=== PATIENT | female | born 1945 | race Asian ===

== ENCOUNTER → 2017-09-02 | Day surgery (SDC) | payer OTHER | END | disposition home or self-care (01) | LOC: FRADUS-SUR 13:00 | PROVIDERS: ATTEND Surgery | PROC: 0HBT3ZX Excision of Right Breast, Percutaneous Approach, Diagnostic (ICD-10-PCS; principal; 2017-09-02) | DX: C50.211 Malignant neoplasm of upper-inner quadrant of right female breast (principal); N63.12 Unspecified lump in the right breast, upper inner quadrant | CPT/HCPCS: 19083; 77065-TC; 87899; 88305-TC; 88341-TC; 88342-TC; A4648 ==

== ENCOUNTER → 2017-10-19 | Day surgery (SDC) | payer OTHER ==
--- NOTE | 2017-10-11 14:50 | HP ---
Admitting History and Physical - Primary Care Physician PCP: Sherry Alegre - Admission Chief Complaint: Right breast cancer History of Present Illness: 72 year , ancestry female with routine mammogeam 05/2017 showing possible spiculated mass right 12:00 additional views showed irregular mass on US. US core bx 08/2017 right 12:00 showed invasive ductal carcinomaER+ VA-,Her2 -. History Source: Patient Limitations to Obtaining History: No Limitations - Past Medical History Cardiovascular: Yes: HTN, Hyperlipdemia Endocrine: Yes: Diabetes Mellitus, Hypothyroidism - Past Surgical History Additional Past Surgical History: partial thyroidectomy 1999 - Smoking History Smoking history: Former smoker Have you smoked in the past 12 months: No - Alcohol/Substance Use Hx Alcohol Use: No Home Medications - Allergies Allergies/Adverse Reactions: Allergies Allergy/AdvReac Type Severity Reaction Status Date / Time No Known Drug Allergies Allergy Verified 09/03/14 16:45 - Home Medications Home Medications: Ambulatory Orders Canagliflozin [Invokana] 300 mg PO DAILY 09/03/14 Duloxetine HCl [Cymbalta -] 60 mg PO HS 09/03/14 Folic Acid - 1 mg PO DAILY 09/03/14 Glimepiride [Amaryl] 2 mg PO DAILY 09/03/14 Insulin Glargine,Hum.rec.anlog [Lantus Solostar PEN -] 40 units SQ DAILY Levothyroxine [Synthroid -] 75 mcg PO DAILY 09/03/14 Losartan/Hydrochlorothiazide [Losartan-Hctz 100-25 mg Tab] 1 each PO DAILY 09/03 Pregabalin [Lyrica -] 100 mg PO DAILY 09/03/14 Simvastatin [Zocor -] 60 mg PO HS 09/03/14 Family Disease History - Family Disease History Family History: Denies Physical Examination Constitutional: Yes: No Distress Breast(s): Yes: Other (symmetrical no nipple discharge or palpable masses bilateral or adenopathy post bx changes right breast) Problem List - Problems (1) Breast cancer, right breast Code(s): C50.911 - MALIGNANT NEOPLASM OF UNSP SITE OF RIGHT FEMALE BREAST Qualifiers: Breast location: upper inner quadrant of breast Patient sex: female Assessment/Plan Right breast wide excision, mammogram needle localization ,sentenel node biopsy ,lymphoscintogram,possible axillary node dissection
[2017-10-18 10:56] VITALS: BMI 31.6
[2017-10-19 09:19] VITALS: BP 131/66; PULSE 71; TEMP 97.7
== END | disposition home or self-care (01) ==
LOC: FASU 08:36
PROVIDERS: ATTEND Surgery
PROC: 0HBT0ZZ Excision of Right Breast, Open Approach (ICD-10-PCS; principal; 2017-10-19)
DX: Z53.8 Procedure and treatment not carried out for other reasons (principal); C50.911 Malignant neoplasm of unspecified site of right female breast; I10 Essential (primary) hypertension; E78.5 Hyperlipidemia, unspecified; E03.9 Hypothyroidism, unspecified; E11.9 Type 2 diabetes mellitus without complications; Z87.891 Personal history of nicotine dependence; Z79.4 Long term (current) use of insulin
CPT/HCPCS: 82962

== ENCOUNTER 2017-10-26 08:44 | Day surgery (SDC) | payer OTHER ==
[2017-10-26 09:41] VITALS: BMI 31.6
[2017-10-26] MEDS ORDERED: MIDAZOLAM HCL 2 MG/2 ML SINGLE DOSE VIAL ONE (12:34)
[2017-10-26] MEDS ORDERED: LIDOCAINE HCL 1%, 10 MG/ML (20ML VIAL) ONE (12:39)
[2017-10-26] MEDS ORDERED: BUPIVACAINE HCL 0.25% 125 MG/50 ML VIAL ONE (12:39)
[2017-10-26] MEDS ORDERED: ISOSULFAN BLUE 10 MG/ML VIAL SQ ONE (12:47)
[2017-10-26] MEDS ORDERED: ONDANSETRON 4 MG/2 ML VIAL IVPUSH PRN (13:11)
[2017-10-26] MEDS ORDERED: KETOROLAC TROMETHAMINE 30 MG/1 ML VIAL IVPUSH PRN (13:11)
[2017-10-26] MEDS ORDERED: DEXTROSE 5%-0.45% SALINE 1,000 ML IV SCH (13:15)
[2017-10-26] MEDS ORDERED: ONDANSETRON 4 MG/2 ML VIAL ONE ×2 (13:31→15:12)
[2017-10-26] MEDS ORDERED: DEXAMETHASONE SOD PHOSPHATE 4 MG/1 ML VIAL ONE ×2 (13:31→15:12)
[2017-10-26] MEDS ORDERED: PROPOFOL 20 ML ONE (13:34)
[2017-10-26] MEDS ORDERED: ROCURONIUM BROMIDE 50 MG/5 ML VIAL ONE (13:34)
[2017-10-26] MEDS ORDERED: LIDOCAINE HCL/PF 2% SDV 5ML VIAL ONE (13:34)
[2017-10-26] MEDS ORDERED: ceFAZolin SODIUM 1 GM VIAL ONE (13:43)
[2017-10-26] MEDS ORDERED: oxyCODONE HCL 5 MG TABLET PO PRN (14:42)
[2017-10-26] MEDS ORDERED: LACTATED RINGERS SOLUTION 1,000 ML IV SCH (14:45)
[2017-10-26] MEDS ORDERED: NEOSTIGMINE METHYLSULFATE 0.5 MG/ML - 10 ML MDV ONE (15:19)
[2017-10-26] MEDS ORDERED: GLYCOPYRROLATE 0.2 MG/1 ML VIAL ONE (15:20)
[2017-10-26 17:07] VITALS: BP 145/73; PULSE 73
--- NOTE | 2017-10-26 18:20 | OP ---
DATE OF OPERATION: 10/26/2017 PREOPERATIVE DIAGNOSIS: Right breast cancer. POSTOPERATIVE DIAGNOSIS: Right breast cancer. PROCEDURE: Right breast wide excision and sentinel node biopsy. SURGEON: Chu Alegre MD SENIOR TECHNICAL WRITER: VANGIE Johnson ANESTHESIA: General. ANESTHESIOLOGIST: ESTIMATED BLOOD LOSS: Minimal. SPECIMEN: 1. [place] nodes. 2. Right breast wide excision. 3. Through 8 additional margins. DRAINS: None. INDICATION FOR PROCEDURE: The patient has a 72-year-old female who had an abnormal mammogram showing a suspicious mass in the right breast. Ultrasound-guided biopsy showed an invasive ductal cancer. After discussion of surgical options, she selected breast conservation with right wide excision and sentinel node biopsy. The procedure was explained to her, and her family and all questions were answered. Risks and complications were also discussed prior to surgery. PROCEDURE: The patient was taken to nuclear medicine where she underwent lymphoscintigraphy to identify the sentinel node. She then underwent a needle localization. She was seen in ambulatory, and informed consent was obtained. The right breast was identified with a marker. She was taken to the operating room and placed on the operating table in the supine position. She was intubated. She received antibiotics prior to surgery. Examination of the right breast showed a localizing wire at the 12 o'clock position. The right breast and axilla were prepped and draped in the usual fashion. The right breast was infiltrated with Lymphazurin and massaged for 5 minutes. A timeout was performed. Examination of the axilla with a navigated probe did show barely elevated counts. An incision was made in the skin crease of the axilla, and the incision was deepened until the axillary fat was exposed. A large soft node was seen that appeared to have a tinge of blue. This node was removed. It did not exhibit high counts, but it was placed in formalin to be sent to Pathology. Further examination of the axilla showed 2 lymph nodes. One was neither blue nor hot and the other exhibited mild counts. Overall there were no significantly high counts in the axilla. These 2 nodes were removed and included with the specimen. Attention was then turned to removal of the breast cancer. An incision was made below the localizing wire in the skin crease. The incision was deepened using electrocautery. Electrocautery was then used to mobilize the tissue around the tip of the needle down towards the chest wall. The needle was disassembled and brought into the operative field. The specimen was removed and labeled with a long lateral stitch and a short superior stitch. A specimen radiograph showed the clip and the specimen were included. Additional margins were then taken from the superior, inferior, medial, lateral, anterior, and posterior regions of the biopsy cavity and were labeled with a stitch at the biopsy cavity side. These were all placed as separate specimens in formalin and sent to Pathology. The wound was irrigated and inspected for hemostasis. There was no evidence of bleeding. The axilla was also free of bleeding. Both were infiltrated with 0.25% Marcaine. The breast incision was closed using interrupted sutures of 2-0 plain for the deep tissue and interrupted stitches of 3-0 Vicryl for the dermis. The skin was closed with a running subcuticular closure of 4-0 Biosyn. The axilla incision was closed using interrupted sutures of 3-0 Vicryl for the deep tissue and for the dermis. The skin was closed with 4-0 Biosyn in a running subcuticular closure. The wounds were cleaned and dressed with Steri-Strips and a sterile gauze dressing. A surgical bra was placed. The patient was awakened and taken to the recovery area in satisfactory condition. She was stable throughout the entire case. At the end of the procedure, sponge, lap, and instrument counts were correct. CHU ALEGRE M.D. [id number]
[2017-10-26 18:25] VITALS: TEMP 98.1
--- NOTE | 2017-10-29 16:29 | PATH ---
Surgical Pathology Report Patient Name: JANE COCHRAN [facility]. Rec. #: [id number] /Age/Gender: 1945 (Age: 72) / F Account: [id number] Location: [facility] Taken: 10/26/2017 Received: 10/26/2017 Reported: 10/29/2017 Physicians: Sherry Alegre M.D. Specimen(s) Received A: RIGHT AXILLARY SENTINEL LYMPH NODE B: RIGHT BREAST WIDE EXCISION C: RIGHT BREAST INFERIOR MARGIN D: RIGHT BREAST SUPERIOR MARGIN E: RIGHT BREAST LATERAL MARGIN F: RIGHT BREAST MEDIAL MARGIN G: RIGHT BREAST POSTERIOR MARGIN H: RIGHT BREAST ANTERIOR MARGIN Clinical History Wide excision: Invasive carcinoma Final Diagnosis A. AXILLARY SENTINEL LYMPH NODE, RIGHT, EXCISION: FOUR BENIGN LYMPH NODES (0/4). B. BREAST, RIGHT, WIDE EXCISION: TWO FOCI OF INVASIVE DUCTAL CARCINOMA, MODERATELY DIFFERENTIATED (TUBULE SCORE: 3/3, NUCLEAR GRADE: 2/3, MITOTIC SCORE: 1/3; TOTAL RERE SCORE: 6/9). INVASIVE CARCINOMA MEASURES 2 AND 9 MM IN GREATEST MICROSCOPIC DIMENSION. DUCTAL CARCINOMA IN SITU (DCIS), INTERMEDIATE NUCLEAR GRADE, SOLID AND MICROPAPILLARY TYPES. NO LYMPHOVASCULAR INVASION IDENTIFIED. DCIS IS <1 MM FROM ANTERIOR-LATERAL MARGIN. SURGICAL MARGINS ARE UNINVOLVED BY INVASIVE CARCINOMA; INVASIVE CARCINOMA IS 4 MM FROM CLOSEST (INFERIOR) MARGIN. SEE SPECIMEN C-H FOR FINAL MARGINS. PRIOR BIOPSY CHANGES PRESENT. PATHOLOGIC STAGE (pTNM): pT1b (m) pN0 (sn). SEE INVASIVE CARCINOMA CASE SUMMARY BELOW. C. BREAST, RIGHT, INFERIOR MARGIN, EXCISION: BENIGN BREAST TISSUE. D. BREAST, RIGHT, SUPERIOR MARGIN, EXCISION: BENIGN FIBROADIPOSE TISSUE. E. BREAST, RIGHT, LATERAL MARGIN, EXCISION: BENIGN BREAST TISSUE. F. BREAST, RIGHT, MEDIAL MARGIN, EXCISION: BENIGN BREAST TISSUE. G. BREAST, RIGHT, POSTERIOR MARGIN, EXCISION: BENIGN FIBROADIPOSE TISSUE H. BREAST, RIGHT, ANTERIOR MARGIN, EXCISION: BENIGN FIBROADIPOSE TISSUE. Comment: Immunohistochemical stain performed and interpreted at [facility] show the carcinoma is positive for E-Cadherin supporting ductal phenotype. Comments Breast Invasive Carcinoma: Surgical Pathology Case Summary (Based on AJCC TNM 8 th edition) Procedure _X_ Excision (less than total mastectomy) Specimen Laterality _X_ Right Tumor Size _X_ Greatest dimension of largest invasive focus >1 mm (millimeters): 9 mm Histologic Type _X_ Invasive carcinoma of no special type (ductal, not otherwise specified) Histologic Grade ([place] Histologic Score) Glandular (Acinar)/Tubular Differentiation _X__ Score 3 (<10% of tumor area forming glandular/tubular structures) Nuclear Pleomorphism _X_ Score 2 Mitotic Rate _X_ Score 1 Overall Grade _X_ Grade 2 (scores of 6) Tumor Focality _X_ Multiple foci of invasive carcinoma Number of foci: __2__ Sizes of individual foci: _2 mm and 9 mm_ Ductal Carcinoma In Situ (DCIS) _X_ DCIS is present in specimen _X_ Negative for extensive intraductal component (EIC) Margins Invasive Carcinoma Margins _X__ Uninvolved by invasive carcinoma Distance from closest margin (millimeters): 4 mm Closest margin: Inferior DCIS Margins _X__ Uninvolved by DCIS: Distance from closest margin (millimeters): (<1 mm in wide excision, but negative in additional final margins. Closest margin: anterior-lateral Regional Lymph Nodes Number of Lymph Nodes with Macrometastases (>2 mm): 0 Number of Lymph Nodes with Micrometastases (>0.2 mm to 2 mm and/or >200 cells): 0 Number of Lymph Nodes with Isolated Tumor Cells (=0.2 mm and =200 cells): 0 Number of Lymph Nodes Examined: 4 Number of [place] Nodes Examined: 4 Treatment Effect _X_ No known presurgical therapy Lymphovascular Invasion _X_ Not identified Pathologic Stage Classification (pTNM, AJCC 8th Edition) TNM Descriptors _X_ m (multiple foci of invasive carcinoma): 2 Foci Primary Tumor (Invasive Carcinoma) (pT) _X__ pT1b: Tumor >5 mm but =10 mm in greatest dimension Regional Lymph Nodes (pN) Modifier _X_ (sn): [place] node(s) evaluated. Category (pN) _X__ pN0: No regional lymph node metastasis identified or ITCs only Biomarker Studies Results of ER and W[place] studies performed on prior biopsy (D104) at [facility] are as follows: ER (clone [id number] mouse monoclonal antibody by [employer]): 90% nuclear staining with strong (Positive). W[place] (clone16 mouse monoclonal antibody by [employer]): 0% nuclear staining (Positive). Results of Her2 (IHC) & Ki-67 studies performed on prior biopsy (D15-133) at [place], [place] ([id number]) are as follows: Her2 IHC (EP3 from [employer], formerly known as [id number], using [employer] Polymer Refine detection kit): 0 (Negative) Ki67: ~5% (Low proliferative index). Electronically Signed Neelam Vaughn M.D. Gross Description A. Received in formalin, labeled "right axillary sentinel lymph node" are four firm to hard lymph nodes with attached fatty tissue, ranging from 1-3.2 cm in greatest dimension. The lymph nodes are entirely submitted in nine cassettes as follows: 1-one bisected lymph node; 2&3-one trisected lymph node; 4&5- one trisected lymph node; 6-9- one quadrisected lymph node. B. Received in formalin, labeled "right breast wide excision" is a 5.2 x 4 x 2.5 cm portion of fibrofatty tissue with a localizing needle in place. The specimen is inked as follows: Anterior-red, deep-black, medial-yellow, lateral-orange, superior-blue, inferior-green. Sectioning reveals a 1.6 x 1 x 0.5 cm ill-defined firm sesay mass at 4 mm from the lateral margin and at 6 mm from the anterior margin. The remaining margins are widely clear ( > 1 cm) of the mass. Remaining breast tissue is comprised predominantly of unremarkable adipose tissue. [employer] sections are submitted in six cassettes as follows: 1,2-mass with anterior and lateral margins; 3-deep margin; 4-medial margin; 5-superior margin; 6-inferior margin. Time to formalin fixation: 3 minutes Total formalin fixation time: Approximately 28 hours C. Received in formalin, labeled "inferior margin" is a 2.7 x 1.5 x 0.5 cm portion of fibrofatty tissue with a suture designating the biopsy cavity side, per the surgeon. The margin opposite the suture is inked green. The specimen is serially sectioned and entirely submitted in two cassettes. D. Received in formalin, labeled "superior margin" is a 2.6 x 1.7 x 0.6 cm portion of fibrofatty tissue with a suture designating the biopsy cavity side, per the surgeon. The margin opposite the suture is inked green. The specimen is serially sectioned and entirely submitted in two cassettes. E. Received in formalin, labeled "lateral margin" is a 3 x 1.7 x 0.4 cm portion of fibrofatty tissue with a suture designating the biopsy cavity side, per the surgeon. The margin opposite the suture is inked green. The specimen is serially sectioned and entirely submitted in three cassettes. F. Received in formalin, labeled "medial margin" is 3.5 x 2.5 x 0.3 cm portion of fibrofatty tissue with a suture designating the biopsy cavity side, per the surgeon. The margin opposite the suture is inked green. The specimen is serially sectioned and entirely submitted in three cassettes. G. Received in formalin, labeled "posterior margin" is a 1.7 x 1.2 x 0.5 cm portion of fibrofatty tissue with a suture designating the biopsy cavity side, per the surgeon. The margin opposite the suture is inked green. The specimen is serially sectioned and entirely submitted in two cassettes. H. Received in formalin, labeled "anterior margin" is a 2.2 x 1.8 x 0.4 cm portion of fibrofatty tissue with a suture designating the biopsy cavity side, per the surgeon. The margin opposite the suture is inked green. The specimen is serially sectioned and entirely submitted in two cassettes. AE10/27/2017 ebram10/27/2017
== END 2017-10-26 18:36 | disposition home or self-care (01) ==
LOC: FASU 08:44
PROVIDERS: ATTEND Surgery
PROC: 0HBT0ZZ Excision of Right Breast, Open Approach (ICD-10-PCS; principal; 2017-10-26 13:53)
DX: C50.211 Malignant neoplasm of upper-inner quadrant of right female breast (principal)
CPT/HCPCS: 19281; 78195-TC; 82962; 88307-TC; 88342-TC; 94760; A9541

== ENCOUNTER 2023-08-14 08:43 | Inpatient (IN) | payer OTHER ==
[2023-08-14 09:18] VITALS: BMI 31.6
[2023-08-14] MEDS ORDERED: ACETAMINOPHEN INJECTION 100 ML IVPB ONE (10:01)
[2023-08-14] MEDS: ACETAMINOPHEN 1000 MG/100 ML BAG IVPB ONE (10:04)
[2023-08-14] MEDS: ACETAMINOPHEN 500 MG TABLET (FP) PO ONE (10:05)
[2023-08-14 10:10] LABS: EPI CELLS 25 /uL (0-25.1); HYALINE CASTS 0 /uL (0-3.1); URINE APPEARANCE CLEAR; URINE BACTERIA 2 /uL (0-1359); URINE BILIRUBIN NEGATIVE (NEGATIVE); URINE COLOR YELLOW; URINE GLUCOSE (UA) 2+ (NEGATIVE); URINE KETONE NEGATIVE (NEGATIVE); URINE LEUK ESTERASE NEGATIVE (NEGATIVE); URINE NITRITE NEGATIVE (NEGATIVE); URINE PROTEIN 3+ (NEGATIVE); URINE RBC 26 /uL (0-23.9); URINE UROBILINOGEN 0.2 mg/dL (0.2-1.0)
[2023-08-14 10:12] LABS: INR 1.15 (0.83-1.09); PROTHROMBIN TIME (PATIENT) 12.9 SEC (9.7-13.0)
[2023-08-14 10:17] LABS: BASO % 0.5 % (0-2.0); EOS % 0.7 % (0-4.5); HEMATOCRIT 37.1 % (32.4-45.2); HEMOGLOBIN 12.4 GM/dL (10.7-15.3); MCH 27.6 pg (25.7-33.7); MCHC 33.5 g/dl (32.0-36.0); MEAN CELL VOLUME 82.5 fl (80-96); MEAN PLT VOLUME 7.7 fl (7.5-11.1); NEUT % 82.8 % (42.8-82.8); PLATELET COUNT 326 10^3/uL (134-434); RDW 15.7 % (11.6-15.6); WHITE BLOOD COUNT 11.5 K/mm3 (4.0-10.0)
[2023-08-14 10:32] LABS: CHLORIDE 106 mmol/L (98-107); POTASSIUM 4.7 mmol/L (3.5-5.1); SODIUM 136 mmol/L (136-145)
[2023-08-14 10:34] LABS: CALCIUM 10.6 mg/dL (8.5-10.1)
[2023-08-14 10:35] LABS: ALBUMIN 3.3 g/dl (3.4-5.0); ANION GAP 4 mmol/L (4-13); BLOOD UREA NITROGEN 32.1 mg/dL (7-18); CO2 26 mmol/L (21-32); GLUCOSE,RANDOM 315 mg/dL (74-106)
[2023-08-14 10:38] LABS: SGOT/AST 36 U/L (15-37); SGPT/ALT 35 U/L (13-61)
[2023-08-14 10:40] LABS: BILIRUBIN,TOTAL 0.5 mg/dL (0.2-1)
[2023-08-14 10:41] LABS: ALK PHOS 128 U/L (45-117)
[2023-08-14] MEDS ORDERED: LOSARTAN POTASSIUM 50 MG TABLET ONE (12:52)
[2023-08-14] MEDS: LOSARTAN POTASSIUM 50 MG TABLET PO SCH (13:00)
[2023-08-14] MEDS: SODIUM CHLORIDE 1,000 ML IV SCH (13:40)
[2023-08-14 13:45] LABS: URINE WBC 80 /uL (0-25.8)
[2023-08-14] MEDS ORDERED: INSULIN (NOVOLOG) ASPART 100 UNITS/ML 10ML VIAL ONE (17:37)
[2023-08-14] MEDS: INSULIN ASPART SLIDING SCALE (NOVOLOG) 1 VIAL SQ SCH (17:40)
[2023-08-15] MEDS: LEVOTHYROXINE NA 75 MCG TABLET (FP) PO SCH (06:21)
[2023-08-15 07:41] LABS: BASO % 0.8 % (0-2.0); EOS % 2.1 % (0-4.5); HEMATOCRIT 37.1 % (32.4-45.2); HEMOGLOBIN 12.5 GM/dL (10.7-15.3); LYMPH % 15.8 % (8-40); MCH 28.1 pg (25.7-33.7); MCHC 33.8 g/dl (32.0-36.0); MEAN CELL VOLUME 83.1 fl (80-96); MEAN PLT VOLUME 8.2 fl (7.5-11.1); NEUT % 75.3 % (42.8-82.8); PLATELET COUNT 314 10^3/uL (134-434); RBC 4.46 M/mm3 (3.60-5.2); RDW 16.2 % (11.6-15.6)
[2023-08-15 07:53] LABS: POTASSIUM 4.7 mmol/L (3.5-5.1)
[2023-08-15 07:55] LABS: CALCIUM 10.2 mg/dL (8.5-10.1)
[2023-08-15 07:56] LABS: BLOOD UREA NITROGEN 28.3 mg/dL (7-18); MAGNESIUM 1.5 mg/dL (1.8-2.4)
[2023-08-15 07:59] LABS: CREATININE 0.9 mg/dL (0.55-1.3); PHOSPHOROUS 2.3 mg/dL (2.5-4.9)
[2023-08-15 08:00] LABS: BILIRUBIN,TOTAL 0.5 mg/dL (0.2-1)
[2023-08-15 08:01] LABS: TOT PROT 6.6 g/dl (6.4-8.2)
[2023-08-15] MEDS: PANTOPRAZOLE 40 MG TABLET PO SCH (13:38)
[2023-08-15] MEDS: NAPH,MB-DB/K PH,MBDB POWDER PACKET PO SCH (13:38)
[2023-08-15] MEDS: ANASTROZOLE 1 MG TABLET PO SCH (13:42)
[2023-08-15] MEDS: MAGNESIUM 2GM/50ML STERILE WATER IVPB IVPB SCH ×2 (13:55→18:20)
[2023-08-15] MEDS ORDERED: INSULIN (NOVOLOG) ASPART 100 UNITS/ML 10ML VIAL ONE (17:00)
[2023-08-15] MEDS: QUEtiapine FUMARATE 25 MG TABLET PO ONE (20:05)
[2023-08-15] MEDS ORDERED: clonazePAM 0.5 MG TABLET PO PRN (22:00)
[2023-08-15] MEDS: ATORVASTATIN CA 20 MG TABLET (FP) PO SCH (22:37)
[2023-08-15] MEDS: QUEtiapine FUMARATE 25 MG TABLET PO SCH (22:37)
[2023-08-16] MEDS ORDERED: INSULIN (NOVOLOG) ASPART 100 UNITS/ML 10ML VIAL ONE (06:22)
[2023-08-16 07:38] LABS: BASO % 0.7 % (0-2.0); EOS % 2.3 % (0-4.5); HEMATOCRIT 40.2 % (32.4-45.2); HEMOGLOBIN 13.4 GM/dL (10.7-15.3); LYMPH % 22.7 % (8-40); MCH 27.7 pg (25.7-33.7); MCHC 33.4 g/dl (32.0-36.0); MEAN CELL VOLUME 82.9 fl (80-96); MEAN PLT VOLUME 8.1 fl (7.5-11.1); MONO % 8.2 % (3.8-10.2); NEUT % 66.1 % (42.8-82.8); PLATELET COUNT 348 10^3/uL (134-434); RBC 4.85 M/mm3 (3.60-5.2); RDW 16.1 % (11.6-15.6); WHITE BLOOD COUNT 10.3 K/mm3 (4.0-10.0)
[2023-08-16 07:53] LABS: POTASSIUM 4.8 mmol/L (3.5-5.1)
[2023-08-16 07:57] LABS: ALBUMIN 3.3 g/dl (3.4-5.0); BLOOD UREA NITROGEN 26.6 mg/dL (7-18); CALCIUM 10.3 mg/dL (8.5-10.1); MAGNESIUM 2.2 mg/dL (1.8-2.4)
[2023-08-16 08:00] LABS: PHOSPHOROUS 2.6 mg/dL (2.5-4.9)
[2023-08-16 08:01] LABS: BILIRUBIN,TOTAL 0.6 mg/dL (0.2-1); TOT PROT 7.4 g/dl (6.4-8.2)
[2023-08-16] MEDS ORDERED: clonazePAM 0.5 MG TABLET PO PRN (08:41)
[2023-08-16] MEDS: clonazePAM 0.5 MG TABLET PO PRN (09:41)
[2023-08-16] MEDS: SILVER SULFADIAZINE 1% TOP CREAM 50 GM JAR TP SCH (16:00)
[2023-08-16] MEDS: ACETAMINOPHEN 1000 MG/100 ML BAG IVPB ONE (19:13)
[2023-08-16] MEDS: SODIUM CHLORIDE 1,000 ML IV SCH (19:14)
[2023-08-16] MEDS: QUEtiapine FUMARATE 25 MG TABLET PO SCH (20:28)
[2023-08-17] MEDS: INSULIN ASPART SLIDING SCALE (NOVOLOG) 1 VIAL SQ SCH (06:28)
[2023-08-17] MEDS: LEVOTHYROXINE NA 75 MCG TABLET (FP) PO SCH (06:28)
[2023-08-17 10:09] LABS: BASO % 0.9 % (0-2.0); EOS % 3.2 % (0-4.5); HEMATOCRIT 39.5 % (32.4-45.2); HEMOGLOBIN 13.4 GM/dL (10.7-15.3); LYMPH % 20.9 % (8-40); MCH 27.8 pg (25.7-33.7); MCHC 33.8 g/dl (32.0-36.0); MEAN CELL VOLUME 82.2 fl (80-96); MEAN PLT VOLUME 7.9 fl (7.5-11.1); MONO % 7.3 % (3.8-10.2); NEUT % 67.7 % (42.8-82.8); PLATELET COUNT 336 10^3/uL (134-434); RBC 4.81 M/mm3 (3.60-5.2)
[2023-08-17 10:34] LABS: POTASSIUM 4.1 mmol/L (3.5-5.1)
[2023-08-17 10:35] LABS: CALCIUM 9.9 mg/dL (8.5-10.1)
[2023-08-17 10:36] LABS: ALBUMIN 2.9 g/dl (3.4-5.0); MAGNESIUM 1.9 mg/dL (1.8-2.4)
[2023-08-17] MEDS: PANTOPRAZOLE 40 MG TABLET PO SCH (10:37)
[2023-08-17] MEDS: ANASTROZOLE 1 MG TABLET PO SCH (10:37)
[2023-08-17] MEDS: LOSARTAN POTASSIUM 50 MG TABLET PO SCH (10:37)
[2023-08-17 10:39] LABS: PHOSPHOROUS 2.5 mg/dL (2.5-4.9)
[2023-08-17 10:40] LABS: CREATININE 0.9 mg/dL (0.55-1.3)
[2023-08-17 10:41] LABS: BILIRUBIN,TOTAL 0.5 mg/dL (0.2-1); TOT PROT 6.5 g/dl (6.4-8.2)
[2023-08-17] MEDS: NAPH,MB-DB/K PH,MBDB POWDER PACKET PO SCH (10:41)
[2023-08-17] MEDS ORDERED: LORazepam 2 MG/ML SDV VIAL IVPUSH ONE (13:36)
[2023-08-17 15:04] VITALS: BP 150/83; PULSE 90; RESP 20; TEMP 97.8
[2023-08-17] MEDS ORDERED: ATORVASTATIN CA 20 MG TABLET (FP) PO SCH (22:00)
== END 2023-08-17 21:09 | DRG 56 ==
LOC: JER 08:43 → JERBED 10:51 → J4W 18:21
PROVIDERS: ADMIT Student in an Organized Health Care Education/Training Program; ATTEND Internal Medicine
DX: G31.83 Neurocognitive disorder with Lewy bodies (principal); G93.41 Metabolic encephalopathy; F02.811 Dementia in other diseases classified elsewhere, unspecified severity, with agitation; E11.9 Type 2 diabetes mellitus without complications; I10 Essential (primary) hypertension; E03.9 Hypothyroidism, unspecified; W18.30XA Fall on same level, unspecified, initial encounter; Y92.099 Unspecified place in other non-institutional residence as the place of occurrence of the external cause; Y99.9 Unspecified external cause status; E86.0 Dehydration; R45.1 Restlessness and agitation; E83.52 Hypercalcemia; E83.39 Other disorders of phosphorus metabolism; E83.42 Hypomagnesemia; E78.5 Hyperlipidemia, unspecified; M25.551 Pain in right hip; M25.511 Pain in right shoulder; M25.561 Pain in right knee
CPT/HCPCS: 36415; 70450-TC; 71045-TC-FY; 72170-TC-FY; 73030-TC-RT-FY; 73552-TC-LT-FY; 73562-TC-LT-FY; 73630-TC-LT; 73700-TC-RT; 80048; 80053; 81003; 82550; 82553; 82962; 83735; 84100; 84443; 84484; 85025; 85610; 87086; 93005; 93010; 97116-GP; 97162-GP; 99285-25; J0131

== ENCOUNTER 2023-10-20 18:28 | Observation (INO) | payer OTHER ==
[2023-10-20 20:45] LABS: BASO % 0.8 % (0-2.0); HEMATOCRIT 38.3 % (32.4-45.2); HEMOGLOBIN 12.8 GM/dL (10.7-15.3); LYMPH % 27.2 % (8-40); MCH 29.1 pg (25.7-33.7); MCHC 33.5 g/dl (32.0-36.0); MEAN CELL VOLUME 86.9 fl (80-96); MEAN PLT VOLUME 8.2 fl (7.5-11.1); MONO % 6.8 % (3.8-10.2); NEUT % 63.2 % (42.8-82.8); PLATELET COUNT 286 10^3/uL (134-434); RBC 4.41 M/mm3 (3.60-5.2); RDW 16.6 % (11.6-15.6); WHITE BLOOD COUNT 6.6 K/mm3 (4.0-10.0)
[2023-10-20 20:48] LABS: EPI CELLS 8 /uL (0-25.1); HYALINE CASTS 0 /uL (0-3.1); PH,URINE 5.5 (5.0-8.0); URINE APPEARANCE CLEAR; URINE BACTERIA 36 /uL (0-1359); URINE BILIRUBIN NEGATIVE (NEGATIVE); URINE COLOR YELLOW; URINE GLUCOSE (UA) 3+ (NEGATIVE); URINE KETONE NEGATIVE (NEGATIVE); URINE LEUK ESTERASE NEGATIVE (NEGATIVE); URINE NITRITE NEGATIVE (NEGATIVE); URINE PROTEIN 2+ (NEGATIVE); URINE RBC 10 /uL (0-23.9); URINE UROBILINOGEN 0.2 mg/dL (0.2-1.0)
[2023-10-20 21:00] LABS: POTASSIUM 4.7 mmol/L (3.5-5.1)
[2023-10-20 21:02] LABS: CALCIUM 10.2 mg/dL (8.5-10.1); MAGNESIUM 1.5 mg/dL (1.8-2.4)
[2023-10-20 21:03] LABS: ALBUMIN 3.3 g/dl (3.4-5.0); BLOOD UREA NITROGEN 24.5 mg/dL (7-18)
[2023-10-20 21:07] LABS: TOT PROT 6.5 g/dl (6.4-8.2)
[2023-10-20 21:08] LABS: BILIRUBIN,TOTAL 0.4 mg/dL (0.2-1)
[2023-10-20] MEDS: SODIUM CHLORIDE 0.9% 500 ML INFUS.BAG IV ONE (21:16)
[2023-10-20 22:05] LABS: URINE WBC 148.7 /uL (0-25.8)
[2023-10-20] MEDS ORDERED: MAGNESIUM SULFATE IN WATER 2 GM/50 ML IVPB IVPB ONE (22:06)
[2023-10-20] MEDS: MAGNESIUM SULFATE IN WATER 2 GM/50 ML IVPB IVPB ONE (22:27)
[2023-10-20 22:41] LABS: VENOUS BASE EXCESS -2.1 mmol/L (-2-2); VENOUS O2 SATURATION 89.6 % (70-80); VENOUS PCO2 35.1 mmHg (38-52); VENOUS PH 7.413 (7.310-7.410)
[2023-10-21] MEDS ORDERED: LACTATED RINGERS SOLUTION 1,000 ML/1,000 ML INFUS.BAG IV SCH (03:15)
[2023-10-21] MEDS ORDERED: CEFTRIAXONE 1 GM/50 ML BAG ONE (03:20)
[2023-10-21] MEDS: SODIUM CHLORIDE 1,000 ML IV SCH (03:44)
[2023-10-21] MEDS: INSULIN REGULAR HUMAN 100 UNITS/ML *VIAL SQ ONE ×2 (03:44→04:26)
[2023-10-21] MEDS: LEVOTHYROXINE NA 75 MCG TABLET (FP) PO SCH (06:52)
[2023-10-21 07:29] LABS: BASO % 0.9 % (0-2.0); EOS % 2.6 % (0-4.5); HEMATOCRIT 39.9 % (32.4-45.2); HEMOGLOBIN 13.3 GM/dL (10.7-15.3); LYMPH % 27.1 % (8-40); MCH 29.2 pg (25.7-33.7); MCHC 33.4 g/dl (32.0-36.0); MEAN CELL VOLUME 87.4 fl (80-96); MEAN PLT VOLUME 8.5 fl (7.5-11.1); MONO % 6.8 % (3.8-10.2); NEUT % 62.6 % (42.8-82.8); PLATELET COUNT 277 10^3/uL (134-434); RBC 4.56 M/mm3 (3.60-5.2); RDW 16.5 % (11.6-15.6); WHITE BLOOD COUNT 7.1 K/mm3 (4.0-10.0)
[2023-10-21 07:48] LABS: POTASSIUM 4.2 mmol/L (3.5-5.1)
[2023-10-21 07:59] LABS: ALBUMIN 3.4 g/dl (3.4-5.0); CALCIUM 9.7 mg/dL (8.5-10.1); MAGNESIUM 1.8 mg/dL (1.8-2.4)
[2023-10-21 08:02] LABS: BLOOD UREA NITROGEN 17.8 mg/dL (7-18); CREATININE 0.7 mg/dL (0.55-1.3)
[2023-10-21 08:04] LABS: BILIRUBIN,TOTAL 0.9 mg/dL (0.2-1); TOT PROT 6.9 g/dl (6.4-8.2)
[2023-10-21] MEDS: LOSARTAN POTASSIUM 50 MG TABLET PO SCH (09:11)
[2023-10-21] MEDS: PANTOPRAZOLE 40 MG TABLET PO SCH (09:11)
[2023-10-21] MEDS: INSULIN (LEVEMIR) 100 UNITS/ML UNITS SQ SCH (09:11)
[2023-10-21] MEDS: ANASTROZOLE 1 MG TABLET PO SCH (09:11)
[2023-10-21] MEDS: QUEtiapine FUMARATE 25 MG TABLET PO SCH (09:11)
[2023-10-21] MEDS: ATORVASTATIN CA 20 MG TABLET (FP) PO SCH (21:43)
[2023-10-22] MEDS: CEFTRIAXONE 1 GM in DEXTROSE 5%-WATER - 50 ML IVPB SCH (04:34)
[2023-10-22] MEDS: ACETAMINOPHEN 325 MG TABLET (FP) PO PRN (15:55)
[2023-10-23] MEDS: INSULIN (LEVEMIR) 100 UNITS/ML UNITS SQ SCH (08:36)
[2023-10-23] MEDS: INSULIN (NOVOLOG) ASPART 100 UNITS/ML 10ML VIAL SQ ONE (12:11)
[2023-10-23] MEDS: INSULIN ASPART SLIDING SCALE (NOVOLOG) 1 VIAL SQ SCH (17:28)
[2023-10-23] MEDS: ACETAMINOPHEN 325 MG TABLET (FP) PO ONE (20:13)
[2023-10-23] MEDS: ACETAMINOPHEN 1000 MG/100 ML BAG IVPB ONE (20:43)
[2023-10-24 02:47] LABS: ARTERIAL BLD GAS O2 SATURATION 93.5 % (95-98); ARTERIAL BLOOD GAS BASE EXCESS -0.5 mmol/L (-2-2); ARTERIAL BLOOD GAS pH 7.476 (7.350-7.450)
[2023-10-24 02:48] LABS: ALLENS TEST POSITIVE
[2023-10-24] MEDS: INSULIN (NOVOLOG) ASPART 100 UNITS/ML 10ML VIAL SQ ONE (03:47)
[2023-10-24 04:12] LABS: BASO % 0.2 % (0-2.0); EOS % 0.1 % (0-4.5); HEMOGLOBIN 14.5 GM/dL (10.7-15.3); MCH 29.5 pg (25.7-33.7); MCHC 34.5 g/dl (32.0-36.0); MEAN CELL VOLUME 85.6 fl (80-96); MEAN PLT VOLUME 8.2 fl (7.5-11.1); NEUT % 71.7 % (42.8-82.8); PLATELET COUNT 325 10^3/uL (134-434); RDW 16.8 % (11.6-15.6); WHITE BLOOD COUNT 10.9 K/mm3 (4.0-10.0)
[2023-10-24 04:31] LABS: POTASSIUM 4.3 mmol/L (3.5-5.1)
[2023-10-24 04:32] LABS: CALCIUM 10.6 mg/dL (8.5-10.1)
[2023-10-24 04:34] LABS: ALBUMIN 3.5 g/dl (3.4-5.0); BLOOD UREA NITROGEN 30.8 mg/dL (7-18)
[2023-10-24 04:36] LABS: CREATININE 1.3 mg/dL (0.55-1.3)
[2023-10-24 04:39] LABS: BILIRUBIN,TOTAL 0.7 mg/dL (0.2-1); TOT PROT 7.1 g/dl (6.4-8.2)
[2023-10-24] MEDS: VANCOMYCIN/WATER FOR INJ (PEG) 1,000 MG/200 ML BAG IVPB ONE (05:20)
[2023-10-24] MEDS: SODIUM CHLORIDE 500 ML IV STA (06:57)
[2023-10-24] MEDS ORDERED: ACETAMINOPHEN 325 MG TABLET (FP) PO PRN (07:15)
[2023-10-24] MEDS: SODIUM CHLORIDE 1,000 ML IV SCH (08:12)
[2023-10-24] MEDS: INSULIN (LEVEMIR) 100 UNITS/ML UNITS SQ SCH (08:29)
[2023-10-24] MEDS: ACETAMINOPHEN 1000 MG/100 ML BAG IVPB SCH (11:07)
[2023-10-24] MEDS ORDERED: ACETAMINOPHEN 1000 MG/100 ML BAG IVPB PRN (19:20)
[2023-10-24] MEDS: PIPERACILLIN/TAZOB 3.375 GM 3.375 GM in DEXTROSE 5%-WATER - 50 ML IVPB SCH (19:53)
[2023-10-25 09:26] LABS: BASO % 0.8 % (0-2.0); EOS % 1.5 % (0-4.5); HEMATOCRIT 37.6 % (32.4-45.2); LYMPH % 18.4 % (8-40); MCHC 34.6 g/dl (32.0-36.0); MEAN CELL VOLUME 86.8 fl (80-96); MEAN PLT VOLUME 8.2 fl (7.5-11.1); MONO % 6.7 % (3.8-10.2); NEUT % 72.6 % (42.8-82.8); PLATELET COUNT 262 10^3/uL (134-434); RBC 4.33 M/mm3 (3.60-5.2); RDW 16.6 % (11.6-15.6)
[2023-10-25 09:44] LABS: BLOOD UREA NITROGEN 35.1 mg/dL (7-18); CALCIUM 10.2 mg/dL (8.5-10.1)
[2023-10-25 09:49] LABS: BILIRUBIN,TOTAL 0.6 mg/dL (0.2-1); TOT PROT 6.4 g/dl (6.4-8.2)
[2023-10-25] MEDS: QUEtiapine FUMARATE 25 MG TABLET PO SCH (11:25)
[2023-10-25 19:35] LABS: EPI CELLS 6 /uL (0-25.1); HYALINE CASTS 1 /uL (0-3.1); PH,URINE 5.5 (5.0-8.0); URINE APPEARANCE CLEAR; URINE BACTERIA 9 /uL (0-1359); URINE BILIRUBIN NEGATIVE (NEGATIVE); URINE COLOR YELLOW; URINE GLUCOSE (UA) 3+ (NEGATIVE); URINE KETONE 1+ (NEGATIVE); URINE LEUK ESTERASE NEGATIVE (NEGATIVE); URINE NITRITE NEGATIVE (NEGATIVE); URINE PROTEIN 2+ (NEGATIVE); URINE RBC 12 /uL (0-23.9); URINE UROBILINOGEN 0.2 mg/dL (0.2-1.0); URINE WBC 9 /uL (0-25.8)
[2023-10-26] MEDS ORDERED: CEFTRIAXONE 1 GM in DEXTROSE 5%-WATER - 50 ML IVPB SCH (05:00)
[2023-10-26 07:15] VITALS: BP 151/82; PULSE 67; RESP 20; TEMP 98.2
[2023-10-26 15:16] VITALS: BMI 28.2
== END 2023-10-26 15:34 ==
LOC: JER 18:28 → JERBED 21:59 → INTOOBSV 21:59 → UNDOADMOB 21:59 → JERBED 10-21 04:04 → J8W 10-21 05:29
PROVIDERS: ADMIT Internal Medicine; ATTEND Internal Medicine
PROC: 3E03329 Introduction of Other Anti-infective into Peripheral Vein, Percutaneous Approach (ICD-10-PCS; principal; 2023-10-21)
PROC: 3E033NZ Introduction of Analgesics, Hypnotics, Sedatives into Peripheral Vein, Percutaneous Approach (ICD-10-PCS; 2023-10-21)
PROC: 3E013VG Introduction of Insulin into Subcutaneous Tissue, Percutaneous Approach (ICD-10-PCS; 2023-10-21)
PROC: 3E0337Z Introduction of Electrolytic and Water Balance Substance into Peripheral Vein, Percutaneous Approach (ICD-10-PCS; 2023-10-21)
DX: S02.642A Fracture of ramus of left mandible, initial encounter for closed fracture (principal); A52.17 General paresis; W18.39XA Other fall on same level, initial encounter; Z91.81 History of falling; Y93.89 Activity, other specified; Y92.099 Unspecified place in other non-institutional residence as the place of occurrence of the external cause; R29.6 Repeated falls; E11.9 Type 2 diabetes mellitus without complications; I11.0 Hypertensive heart disease with heart failure; Z99.89 Dependence on other enabling machines and devices; Z85.3 Personal history of malignant neoplasm of breast; Z79.4 Long term (current) use of insulin; E03.9 Hypothyroidism, unspecified
CPT/HCPCS: 0241U-QW; 36415; 36600; 70450-TC; 71045-TC-FY; 72125-TC; 80053; 81003; 82010; 82803; 82962; 83036; 83605; 83735; 84100; 84443; 84484; 85025; 87040; 87086; 87633; 93005; 93010; 96361; 96365; 96367; 96372; 96375; 96376; 97116-GP; 97161-GP; 99291; G0378; J0131